=== PATIENT | male | born 1955 | race Caucasian/White ===

== ENCOUNTER 2022-03-31 11:38 | Emergency (ER) | payer MEDICARE, SELFPAY ==
[2022-03-31 11:53] VITALS: BP 120/64; PULSE 50; RESP 16; TEMP 36.3; O2SAT 99
--- NOTE | 2022-03-31 12:39 | ED.SKABFB ---
HPI - Skin/Abscess/Foreign Bdy General Chief complaint: Skin/Abscess/Foreign Body Stated complaint: rash Time Seen by Provider: 03/31/22 12:39 Source: patient Mode of arrival: ambulatory Limitations: no limitations History of Present Illness HPI narrative: 66 y/o male presented for c/o rash under both arms for 5 days. States last night it felt like a 'burning' sensation and endorses itching. States today it feels much better. States he has changed deodorant in the past 2 weeks, stop using it 5 days ago. He denies any other locations of rash or lesions. He denies any oozing from the sites. Denies lip, tongue, throat swelling, shortness of breath or wheezing, fevers or chills. Related Data Home Medications Medication Instructions Recorded Confirmed bupropion HCl 150 mg 24 hr tablet, mg PO 03/31/22 extended release carvedilol 12.5 mg tablet mg 03/31/22 escitalopram oxalate 10 mg tablet mg 03/31/22 glimepiride 4 mg tablet mg 03/31/22 ketoconazole 2 % topical cream applic topical 03/31/22 lisinopril 20 tablet 03/31/22 mg-hydrochlorothiazide 12.5 mg tablet lisinopril 40 mg tablet mg 03/31/22 metformin 500 mg tablet,extended mg PO 03/31/22 release 24 hr omeprazole 20 mg capsule,delayed mg 03/31/22 release pioglitazone 30 mg tablet mg 03/31/22 simvastatin 40 mg tablet mg 03/31/22 Allergies Allergy/AdvReac Type Severity Reaction Status Date / Time aspirin Allergy Unknown edema Verified 03/31/22 12:26 Review of Systems Review of Systems: CONSTITUTIONAL: Denies body aches, fever, chills, or sweats. EYES: Denies visual changes, redness, or discharge. ENT: Denies rhinorrhea, congestion CARDIOVASCULAR: Denies chest pain, palpitations, or edema. RESPIRATORY: Denies cough or dyspnea. GASTROINTESTINAL: Denies abdominal pain, nausea, vomiting, or diarrhea. SKIN: Per HPI MUSCULOSKELETAL: Denies back pain, joint pain, or myalgia. NEUROLOGIC: Denies headache, numbness, tingling, or weakness. PMFSH Comments At time of signature, I have reviewed and agree with nursing past medical, surgical, social and family history unless otherwise noted. Please see nursing chart for further information. There is no relevant family history pertinent to the presenting complaint Exam Narrative: GENERAL: Well-appearing HEAD: Normocephalic, atraumatic. EYES: conjunctivae clear, and EOMI. ENT: Mucous membranes moist. Oropharynx without edema, erythema or lesions. NECK: Supple. No lymphadenopathy CHEST: Clear to auscultation. HEART: Regular rate and rhythm. SKIN: Warm, dry. Bilateral posterior axilla with erythematous raised lesions approximately 3 mm diameter consistent with contact dermatitis, sites are nontender, no active drainage or induration NEURO: Alert and oriented x3. Course Course Emergency Course: Patient is aware of diagnosis, understands and agrees to treatment plan. Anticipatory guidance given. Patient agrees to follow-up as directed and is aware of reasons to seek care at the emergency department. Portions of this record may have been created with voice recognition software Level of Care: Express Care Visit Vital Signs Vital signs: Vital Signs Temperature 97.4 F L 03/31/22 11:53 Pulse Rate 50 L 03/31/22 11:53 Respiratory Rate 16 03/31/22 11:53 Blood Pressure 120/64 03/31/22 11:53 Pulse Oximetry 99 03/31/22 11:53 Oxygen Delivery Room Air 03/31/22 11:53 Temperature 97.4 F L 03/31/22 11:53 Pulse Rate 50 L 03/31/22 11:53 Respiratory Rate 16 03/31/22 11:53 Blood Pressure 120/64 03/31/22 11:53 Pulse Oximetry 99 03/31/22 11:53 Oxygen Delivery Room Air 03/31/22 11:53 Reviewed MDM - Skin/Abscess/Foreign Bdy MDM Narrative Medical decision making narrative: Instructed patient to go to nearest ER immediately for any worsening symptoms including but not limited to: fever, spreading rash, pain, sore throat, headache, dizziness, chest pain, trouble b
== END 2022-03-31 12:54 | disposition home or self-care (01) ==
PROVIDERS: Emergency Provider Nurse Practitioner Family
DX: L25.9 Unspecified contact dermatitis, unspecified cause (principal)
CPT/HCPCS: 99213; G0463

== ENCOUNTER 2023-01-20 12:27 | Emergency (ER) | payer MEDICARE, SELFPAY ==
[2023-01-20 12:37] VITALS: BP 122/84; PULSE 117; RESP 16; TEMP 36.6; O2SAT 96
--- NOTE | 2023-01-20 12:42 | ED.URI ---
HPI - URI/Sore Throat General Chief Complaint: Upper Respiratory Infection Stated Complaint: Sinus Source: patient and RN notes reviewed Mode of arrival: ambulatory Limitations: no limitations History of Present Illness HPI Narrative: 67-year-old male history of diabetes and hypertension presented for complaint of headache, body aches, sinus pressure/congestion, cough, fever/chills. onset 2 days. Cough is productive yellow/brown sputum. Reports pain with urinating yesterday and today. Denies hematuria, abdominal pain, n/v/d. Denies sob, wheezing, n/v/d. denies sick contacts. Taking Claritin for symptoms. MD elicited complaint: cough Related Data Home Medications Medication Instructions Recorded Confirmed bupropion HCl 150 mg 24 hr tablet, mg PO 03/31/22 extended release carvedilol 12.5 mg tablet mg 03/31/22 escitalopram oxalate 10 mg tablet 5 mg 03/31/22 glimepiride 4 mg tablet mg 03/31/22 lisinopril 40 mg tablet mg 03/31/22 metformin 500 mg tablet,extended mg PO 03/31/22 release 24 hr pioglitazone 30 mg tablet mg 03/31/22 simvastatin 40 mg tablet mg 03/31/22 aspirin 81 mg tablet,delayed 81 mg PO DAILY 01/20/23 01/20/23 release insulin detemir U-100 100 unit/mL unit subcut 01/20/23 (3 mL) subcutaneous pen (Levemir FlexPen) loratadine 10 mg tablet 10 mg PO DAILY 01/20/23 01/20/23 multivit,calcium,min-folic acid tablet PO 01/20/23 240 mcg-D3 25 mcg-lycop 300 mcg tablet (One A Day Men Complete) vitamins A,C,J-dydy-lvsrix 2,148 2 tablet PO BID 01/20/23 01/20/23 mcg-113 mg-45 mg-17.4 mg tablet (PreserVision AREDS) Allergies Allergy/AdvReac Type Severity Reaction Status Date / Time aspirin Allergy Unknown edema Verified 01/20/23 12:41 Review of Systems Review of Systems: CONSTITUTIONAL: Endorses malaise, chills, sweats, fever EYES: Denies visual changes, redness, or discharge ENT: Reports rhinorrhea, congestion, sinus pain, denies otalgia, sore throat CARDIOVASCULAR: Denies chest pain, palpitations, edema RESPIRATORY: Reports cough, post nasal drainage. Denies dyspnea GASTROINTESTINAL: Denies abdominal pain, nausea, vomiting, diarrhea SKIN: Denies rash or itching MUSCULOSKELETAL: Endorses myalgia NEUROLOGIC: Endorses headache PMFSH Past Medical History Medical History Diabetes Hypertension Exam Narrative: GENERAL: well-appearing, nontoxic EYES: PERRLA, conjunctivae clear ENT: Mucous membranes moist. TMs pearly dominique with dull light reflex bilaterally; no tragal tenderness. Oropharynx erythematous without lesions or exudate, no drooling, no hoarseness, no trismus, uvula midline. No tripod positioning, muffled voice, soft palate or pharyngeal wall bulging NECK: Supple. No lymphadenopathy CHEST: Clear to auscultation, breath sounds equal. No wheezing, rhonchi, rales, or stridor. No respiratory distress, speaks in full sentences. HEART: Regular rate and rhythm. No murmur heard. SKIN: Warm, dry, no rash. NEURO: Alert and oriented x3. PSYCH: Normal mood and affect Course Course Emergency Course: Patient is aware of diagnosis, understands and agrees to treatment plan. Anticipatory guidance given. Patient agrees to follow-up as directed and is aware of reasons to seek care at the emergency department. Portions of this record may have been created with voice recognition software Level of Care: Express Care Visit Vital Signs Vital signs: Vital Signs Temperature 97.8 F 01/20/23 12:37 Pulse Rate 117 H 01/20/23 12:37 Respiratory Rate 16 01/20/23 12:37 Blood Pressure 122/84 01/20/23 12:37 Pulse Oximetry 96 01/20/23 12:37 Oxygen Delivery Room Air 01/20/23 12:37 Temperature 97.8 F 01/20/23 12:46 Pulse Rate 117 H 01/20/23 12:46 Respiratory Rate 16 01/20/23 12:46 Blood Pressure 122/84 01/20/23 12:46 Pulse Oximetry 96 01/20/23 12:46 Oxygen Delivery Room Air 01/20/23 12:
[2023-01-20 12:46] VITALS: BP 122/84; PULSE 117; RESP 16; TEMP 36.6; O2SAT 96
== END 2023-01-20 13:17 | disposition home or self-care (01) ==
PROVIDERS: Emergency Provider Nurse Practitioner Family
DX: U07.1 COVID-19 (principal); E11.9 Type 2 diabetes mellitus without complications; I10 Essential (primary) hypertension
CPT/HCPCS: 81003; 87426; 87804; 99213; C9803; G0463